=== PATIENT | female | born 2000 | race Two or more races ===

== ENCOUNTER 2020-09-19 00:59 | Emergency (ER) | payer OTHER ==
[~2020-09-19] VITALS: Ht 152.4 cm; Wt 60.7 kg
[2020-09-19 02:07] LABS: BASO # 0.1 10^3/uL (0.0-0.2); BASO % 0.4 % (0.0-1.0); HEMOGLOBIN 17.2 g/dl (12.0-15.5); LYMPH # 2.2 10^3/uL (1.5-5.0); LYMPH % 11.1 % (24.0-44.0); MEAN CORPUSCULAR HEMOGLOBIN 31.6 pg (27.0-33.0); MEAN CORPUSCULAR HGB CONC 33.7 g/dl (32.0-36.5); MEAN CORPUSCULAR VOLUME 93.6 fl (80.0-96.0); MONO # 0.9 10^3/uL (0.0-0.8); MONO % 4.5 % (2.0-8.0); NEUTROPHILS # 16.1 10^3/uL (1.5-8.5); NEUTROPHILS % 83.2 % (36.0-66.0); PLATELET COUNT, AUTOMATED 381 10^3/uL (150-450); RED BLOOD COUNT 5.45 10^6/uL (4.00-5.40); WHITE BLOOD COUNT 19.4 10^3/uL (4.0-10.0)
[2020-09-19] MEDS ORDERED: NS 1,000 ML IV ONE ×2 (02:25→05:00)
[2020-09-19] MEDS ORDERED: FAMOTIDINE INJ 20MG/2ML VIAL (S0028 PER 1) IVP ONE (02:25)
[2020-09-19] MEDS ORDERED: ONDANSETRON 4MG/2ML VIAL IV ONE (02:25)
[2020-09-19 02:41] LABS: HCG, SERUM QUALITATIVE NEGATIVE (NEGATIVE)
[2020-09-19 02:59] LABS: ALBUMIN 4.6 GM/DL (3.2-5.2); ALT/SGPT 53 U/L (12-78); BILIRUBIN,DIRECT 0.2 MG/DL (0.0-0.2); BILIRUBIN,TOTAL 1.2 MG/DL (0.2-1.0); BLOOD UREA NITROGEN 20 MG/DL (7-18); CALCIUM LEVEL 9.7 MG/DL (8.5-10.1); CARBON DIOXIDE LEVEL 21 MEQ/L (21-32); CHLORIDE LEVEL 105 MEQ/L (98-107); CREATININE FOR GFR 0.82 MG/DL (0.55-1.30); GLOMERULAR FILTRATION RATE > 60.0 (>60); GLUCOSE, FASTING 83 MG/DL (70-100); LIPASE 57 U/L (73-393); POTASSIUM SERUM 4.4 MEQ/L (3.5-5.1); SODIUM LEVEL 137 MEQ/L (136-145); TOTAL PROTEIN 8.7 GM/DL (6.4-8.2)
--- NOTE | 2020-09-19 06:28 | REPVR ---
PROCEDURE INFORMATION: Exam: XR Chest Exam date and time: 09/19/2020 4:51 AM Age: 20 years old Clinical indication: Other: Leukocytosis TECHNIQUE: Imaging protocol: XR of the chest. Views: 2 views. COMPARISON: No relevant prior studies available. FINDINGS: Lungs: Unremarkable. No consolidation. Pleural spaces: Unremarkable. No pleural effusion. No pneumothorax. Heart/Mediastinum: Unremarkable. No cardiomegaly. Bones/joints: Unremarkable. IMPRESSION: No acute findings. Electronically signed by: Cameron Leonard On 09/19/2020 06:28:02 AM
[2020-09-19 07:30] LABS: RSV AMPLIFICATION NEGATIVE (NEGATIVE)
[2020-09-19] MEDS ORDERED: CEPH500C PO (07:39)
[2020-09-19] MEDS ORDERED: REGL10TA6 PO (07:41)
[2020-09-19] MEDS ORDERED: UNIS25TA3 PO (07:41)
[2020-09-19] MEDS ORDERED: CEPHALEXIN 500 MG CAP PO ONE (07:45)
[2020-09-19 07:49] VITALS: BP 140/90
== END 2020-09-19 08:03 | disposition home or self-care (01) ==
LOC: M ED 00:59
DX: N39.0 Urinary tract infection, site not specified (principal); Z79.899 Other long term (current) drug therapy
CPT/HCPCS: 71046; 80048; 80076; 81001; 83690; 84703; 85025; 87631; 96361; 96374; 99284; J2405

== ENCOUNTER 2020-11-29 13:15 | Emergency (ER) | payer OTHER ==
[~2020-11-29] VITALS: Ht 152.4 cm; Wt 62.5 kg
[~2020-11-29 13:15] MED LIST: CEPH500C PO; REGL10TA6 PO; UNIS25TA3 PO
[2020-11-29] MEDS ORDERED: ONDANSETRON 4 MG ORAL DISINTEGRATING TAB PO ONE (18:00)
[2020-11-29] MEDS ORDERED: KETOROLAC TROMETHAMINE 10 MG TAB PO ONE (18:00)
[2020-11-29 19:27] LABS: RSV AMPLIFICATION NEGATIVE (NEGATIVE)
[2020-11-29] MEDS ORDERED: ONDA4TAB6 PO (20:12)
[2020-11-29 20:55] VITALS: BP 138/78
== END 2020-11-29 21:00 | disposition home or self-care (01) ==
LOC: M ED 13:15
DX: O07.1 Delayed or excessive hemorrhage following failed attempted termination of pregnancy (principal); F12.20 Cannabis dependence, uncomplicated
CPT/HCPCS: 87631; 99283; Q0162